=== PATIENT | male | born 1980 | race Caucasian/White ===

== ENCOUNTER → 2021-04-02 11:27 | Outpatient (BNVA) | payer OTHER, SELFPAY | PROVIDERS: Visit Provider Nurse Practitioner Family | DX: I10 Essential (primary) hypertension (principal); H66.93 Otitis media, unspecified, bilateral; Z13.6 Encounter for screening for cardiovascular disorders; E55.9 Vitamin D deficiency, unspecified; Z79.899 Other long term (current) drug therapy | CPT/HCPCS: 80053; 80061; 81003; 82306; 83036; 84439; 84443; 85025 ==

== ENCOUNTER → 2021-04-12 11:26 | Outpatient (BNVA) | payer OTHER, SELFPAY | PROVIDERS: PCP Nurse Practitioner Family; Visit Provider Nurse Practitioner Family | DX: N02.9 Recurrent and persistent hematuria with unspecified morphologic changes (principal); R94.4 Abnormal results of kidney function studies; R80.9 Proteinuria, unspecified | CPT/HCPCS: 80053; 81003; 87086 ==

== ENCOUNTER 2021-04-26 16:26 | Observation (INO) | payer OTHER, SELFPAY ==
--- NOTE | 2021-04-26 16:33 | ECG_ITS ---
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
[2021-04-26 17:16] VITALS: BP 171/102; PULSE 84; RESP 14; TEMP 36.8; O2SAT 97; BMI 35.3
--- NOTE | 2021-04-26 17:26 | XRR_ITS ---
PROCEDURE INFORMATION: Exam: XR Chest Exam date and time: 04/26/2021 5:26 PM Age: 40 years old Clinical indication: Sternal or substernal pain; Additional info: Chest pain TECHNIQUE: Imaging protocol: XR of the chest. Views: 1 view. COMPARISON: No relevant prior studies available. FINDINGS: Lungs: Unremarkable. No consolidation. Pleural spaces: Unremarkable. No pleural effusion. No pneumothorax. Heart/Mediastinum: Unremarkable. No cardiomegaly. Bones/joints: Probable old healed left clavicle fracture. No acute fracture. XR/XR chest 1V portable [id number] IMPRESSION: 1. No acute findings. Radiation Dose CTDIVOL = (mGy): DLP = (mGy-cm)
[2021-04-26 17:28] VITALS: BP 171/102; PULSE 83; RESP 16; O2SAT 98
[2021-04-26 17:52] LABS: Basophils # 0.1 10^3/uL (0.0-0.1); Basophils % 0.6 %; Eosinophils # 0.1 10^3/uL (0.0-0.8); Eosinophils % 0.7 %; Hematocrit 44.8 % (42.0-52.0); Hemoglobin 15.8 g/dL (11.7-16.6); Lymphocytes # 2.6 10^3/uL (0.8-4.8); Lymphocytes % 25.1 %; Mean Corpuscular HGB Conc 35.3 g/dL (30.0-36.0); Mean Corpuscular Hemoglobin 29.2 pg (28.0-34.0); Mean Corpuscular Volume 82.7 fl (80-94); Mean Platelet Volume 9.6 fL (7.4-10.4); Monocytes # 0.6 10^3/uL (0.2-0.9); Neutrophils # 6.96 10^3/uL (1.8-7.7); Neutrophils % 67.2 %; Nucleated Red Blood Cells % 0 %; Platelet Count 301 10^3/cmm (130-400); Red Blood Count 5.42 10^6/uL (4.1-5.3); Red Cell Distribution Width 12.5 % (12.1-15.1); White Blood Count 10.4 10^3/uL (4.0-10.0)
--- NOTE | 2021-04-26 17:53 | ED_ITS ---
HPI - General Adult General: Chief complaint: Chest Pain Stated complaint: CP Time Seen by Provider: 04/26/21 17:16 History of Present Illness: HPI narrative: CC: Chest Pain HPI: This is a [40] yo patient hx of HTN presenting to the ED complaining of acute sudden onset intermittent chest pressure since 3 hrs now worsening progressively over 3 weeks. No associated with shortness of breath, chest pain or dyspnea on exertion. Pain is not tearing in nature and does not radiate to the back. Pain not associated with vomiting or PO intake. Denies any recent sympathomimetic drug use. Patient denies any cough. Denies palpitations, dysphagia, diaphoresis, radiation of pain to bilateral arms, jaw. Denies F/N/V/D. Patient denies any recent immobility, surgery, unilateral leg swelling, or prior PE. Patient denies any orthopnea. Onset: 3 weeks ago Duration: ongoing for the last 21 days Location: home Severity: mild/moderate Review of Systems Narrative: Constitutional: No fever, no chills. HEENT: No vision changes, no sore throat. CV: +chest pain, no palpitations. PULM: No cough, No dyspnea. GI: No abdominal pain, no N/V/D. : No dysuria, no frequency, no hematuria. MSKEL: No arthralgias, no edema. SKIN: No new rashes, no lesions. NEURO: No headache, no focal weakness. HEME: No easy bleeding or bruising. PSYCH: No change in mood or affect. PFS ED PFSH: Medical History (Updated 04/26/21 @ 20:23 by Yanet Avitia MD) Bilateral acute otitis media Decreased GFR Elevated serum creatinine Hypertension screen Medication management Proteinuria Recurrent hematuria Tachycardia Vitamin D deficiency Social History Smoking and tobacco status: never smoked Physical Exam Narrative: EXAM NARRATIVE: Head: Atraumatic, normocephalic Eyes: PERRL, EOMI, conjunctiva without injection ENT: Throat without erythema, lesions or exudate, MMM NECK: Supple, trachea midline, no JVD LUNGS: LCTA CV: RRR, S1,S2, no murmurs, rubs, gallops. 2+ peripheral pulses in UEs ABDOMEN: Soft, nontender, nondistended, BS x4, no rigidity, no guarding, no rebound EXTREMITY: Normal ROM, no pitting edema, no calf tenderness to palpation SKIN: No rash or erythema NEURO: Awake and alert. No focal motor deficits. PSYCH: Normal mood and affect. Course Vital Signs: Vital signs: Vital Signs Temperature 98.2 F 04/26/21 17:16 Pulse Rate 92 04/26/21 18:43 Respiratory Rate 16 04/26/21 17:28 Blood Pressure 127/79 04/26/21 18:43 Pulse Oximetry 96 04/26/21 18:43 MDM - General Adult MDM Narrative: Medical decision making narrative: [40]yo patient w/ hx of HTN presenting to the ED with evaluation of chest pain worsening over the last 3 weeks, worse with exertion. HDS, pulse 2+ radially bilaterally, no signs of fluid overload, AAOx3, neuro exam intact. Given History and Exam today I have no suspicion for ACS, Pneumothorax, Pneumonia, Pulmonary Embolus, Tamponade, Aortic Dissection or other emergent problems as a cause for this presentation. Workup: ECG, CXR, CBC, BMP, Troponin x 2 Interventions: Aspirin Findings: ECG: No overt evidence of STEMI, hyperacute T waves, localizable STD or T wave inversions. No evidence of Brugada?s sign, delta wave, epsilon wave, significantly prolonged QTc, or malignant arrhythmia. No Q waves. Other Labs unremarkable for emergent problems. CXR: Without PTX, PNA, or widened mediastinum Last Stress Test: never Last Heart Catheterization: never Given the fact that this is patient's third visit to the emergency room, has exertional chest pain, patient will be admitted to the hospital for further work-up including stress test and echo. Disposition: Admission Lab Data: Labs: Lab Results 04/26/21 04/26/21 04/26/21 17:40 17:40 17:40 WBC 10.4 10^3/uL H 10 ^3/uL (4.0-10.0) RBC 5.42 10^6/uL H 10 ^6/uL (4.1-5.3) Hgb 15.8 g/dL g/dL (11.7-16.6) Hct 44.8 % % (42.0-52.0) MCV 82.7 fl fl (80-94) MCH 29.2 pg pg (28.0-34.0) MCHC 35.3 g/dL g/dL (30.0-36.0) RDW 12.5 % % (12.1-15.1) Plt Count 301 10^3/cmm 10^3 /cmm (130-400) MPV 9.6 fL fL (7.4-10.4) Neut % (Auto) 67.2 % % Lymph % (Auto) 25.1 % % [place] % (Auto) 6.0 % % Eos % (Auto) 0.7 % % Baso % (Auto) 0.6 % % Neut # (Auto) 6.96 10^3/uL 10^3 /uL (1.8-7.7) Lymph # (Auto) 2.6 10^3/uL 10^3/ uL (0.8-4.8) [place] # (Auto) 0.6 10^3/uL 10^3/ uL (0.2-0.9) Eos # (Auto) 0.1 10^3/uL 10^3/ uL (0.0-0.8) Baso # (Auto) 0.1 10^3/uL 10^3/ uL (0.0-0.1) Nucleated RBC % (a uto) 0 % % Nucleated RBCs # 0.0 /100WBC /100W BC D-Dimer Sodium 142 mmol/L mmol/L (136-145) Potassium 4.2 mmol/L mmol/L (3.5-5.1) Chloride 106 mmol/L mmol/L (98-107) Carbon Dioxide 22 mmol/L mmol/L (22-29) Anion Gap 18.2 (5-19) BUN 16 mg/dL mg/dL (6-20) Creatinine 1.5 mg/dL H mg/dL (0.7-1.2) GFR Calculation 51.3 mL/min L mL/ min (90-130) Glucose 91 mg/dL mg/dL (65-115) Calculated Osmolal ity 295 mOsm/kg mOsm/ kg (285-295) Calcium 8.9 mg/dL mg/dL (8.5-10.5) Troponin T Baselin e 12 ng/L ng/L (0-15) Troponin T 120 Min [place] Delta Troponin T 04/26/21 04/26/21 17:40 19:53 WBC RBC Hgb Hct MCV MCH MCHC RDW Plt Count MPV Neut % (Auto) Lymph % (Auto) [place] % (Auto) Eos % (Auto) Baso % (Auto) Neut # (Auto) Lymph # (Auto) [place] # (Auto) Eos # (Auto) Baso # (Auto) Nucleated RBC % (a uto) Nucleated RBCs # D-Dimer 0.37 ug/mIFEU ug/ mIFEU (0-0.59) Sodium Potassium Chloride Carbon Dioxide Anion Gap BUN Creatinine GFR Calculation Glucose Calculated Osmolal ity Calcium Troponin T Baselin e Troponin T 120 Min [place] 10.23 ng/L ng/L (0-15) Delta Troponin T -1.77 ABS# L ABS# (0-10) Discharge Plan Discharge Patient Disposition: Admitted As Inpatient Clinical Impression: Chest pain, VALDEMAR (acute kidney injury) Condition: Stable Coding Level of Care Code ED [employer] for George Elam
[2021-04-26 18:06] LABS: D Dimer 0.37 ug/mIFEU (0-0.59)
[2021-04-26 18:10] LABS: Troponin(5th) Baseline 12 ng/L (0-15)
[2021-04-26 18:11] LABS: Anion Gap 18.2 (5-19); Blood Urea Nitrogen 16 mg/dL (6-20); Calcium 8.9 mg/dL (8.5-10.5); Carbon Dioxide 22 mmol/L (22-29); Chloride 106 mmol/L (98-107); Glomerular Filtration Rate 51.3 mL/min (90-130); Glucose 91 mg/dL (65-115); Osmolality Calculated 295 mOsm/kg (285-295); Potassium 4.2 mmol/L (3.5-5.1); Sodium 142 mmol/L (136-145)
[2021-04-26] MEDS: aspirin 325 mg Tablet PO (18:41)
[2021-04-26 18:43] VITALS: BP 127/79; PULSE 92; O2SAT 96
--- NOTE | 2021-04-26 19:26 | ECG_ITS ---
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1980 Requested By: Yanet Avitia Order Number: [id number] Reading MD: ANTONIO JOHNSTON Measurements Intervals [place] Rate: 82 P: 31 [place]: 139 QRS: 44 QRSD: 96 T: 35 QT: 351 QTc: 412 Interpretive Statements SINUS RHYTHM POSSIBLE RIGHT VENTRICULAR CONDUCTION DELAY [RSR (QR) IN V1/V2] Compared to ECG 04/26/2021 16:44:43 Incomplete right bundle-branch block no longer present Electronically Signed On 04-27-2021 0:02:00 CDT by ANTONIO JOHNSTON [email or web address]/store/NU/[id number] f
--- NOTE | 2021-04-26 20:05 | PM.HP ---
Providers/Chief Complaint Primary Care Provider: SIRIA Jean Chief Complaint: CP History of Present Illness Husam Lutz is a 40 year old male with past medical history of hypertension, possible chronic kidney disease, dyslipidemia who is presenting with complaints of chest tightness. According to the patient it was present for last 4 weeks. Triggered by walking or other physical activities. Today it started when he was working in [employer] with his children. It is mild to moderate in intensity intermittent. Resting helps with the pain. Reports associated shortness of breath and tingling all over the body. He noticed that occasionally his blood pressure is elevated when he experiences this episodes. Reports associated diaphoresis. Denies palpitations, cough, fever, peripheral swelling. Denies focal muscle weakness or sensory loss. Denies problems with speech. Denies headache. His primary care physician Abel considering cardiac referral for outpatient stress test. Review of Systems General: Reports: 10 or more systems reviewed and unremarkable except in HPI and below Medications/Allergies Home Medications Medication Instructions Recorded Confirmed Last Taken Type amlodipine 10 mg tablet 10 mg PO DAILY 90 Days #90 tab 04/18/21 04/22/21 Unknown Rx atorvastatin 40 mg tablet 40 mg PO DAILY 30 Days #30 tab 04/18/21 04/22/21 Unknown Rx clonidine HCl 0.1 mg tablet 0.1 mg PO BID PRN 30 Days #60 tab 04/18/21 04/22/21 Unknown Rx hydralazine 25 mg tablet 25 mg PO TID 30 Days #90 tab 04/18/21 04/22/21 Unknown Rx nitroglycerin 0.4 mg sublingual 0.4 mg SUBLINGUAL Q5M PRN 30 Days 04/18/21 04/22/21 Unknown Rx tablet #30 tab metoprolol tartrate 25 mg tablet 12.5 mg PO BID 30 Days #30 tab 04/22/21 04/22/21 Unknown Rx Allergies Allergy/AdvReac Type Severity Reaction Status Date / Time No Known Allergies Allergy Verified 04/22/21 15:08 PFSH Acute PFSH: Medical History (Updated 04/26/21 @ 20:08 by Jeferson Thompson) Bilateral acute otitis media Decreased GFR Elevated serum creatinine Hypertension screen Medication management Proteinuria Recurrent hematuria Tachycardia Vitamin D deficiency Social History Smoking and tobacco status: never smoked Vitals/I&O/Wt Last Vital Signs Temp 98.2 F 04/26/21 17:16 Pulse 92 04/26/21 18:43 Resp 16 04/26/21 17:28 BP 127/79 04/26/21 18:43 Pulse Ox 96 04/26/21 18:43 Weight last 48 hrs Weight 99.337 kg Physical Exam Narrative: EXAM NARRATIVE: The patient is currently awake alert oriented. No acute distress. Mood and affect are appropriate. Responses are adequate. Normal speech. Skin is warm and dry. Extremities Neck supple. Lungs are clear to auscultation bilaterally. No respiratory distress no tenderness on palpation of the chest wall Heart S1, S2, regular Abdomen soft, obese, nontender, bowel sounds are present Extremities no edema cyanosis or calf tenderness bilaterally Neuro examination is nonfocal. Data : 04/26/21 17:40 04/26/21 17:40 Other Labs: Laboratory Results WBC 10.4 10^3/uL (4.0-10.0) H 04/26/21 17:40 RBC 5.42 10^6/uL (4.1-5.3) H 04/26/21 17:40 Hgb 15.8 g/dL (11.7-16.6) 04/26/21 17:40 Hct 44.8 % (42.0-52.0) 04/26/21 17:40 MCV 82.7 fl (80-94) 04/26/21 17:40 MCH 29.2 pg (28.0-34.0) 04/26/21 17:40 MCHC 35.3 g/dL (30.0-36.0) 04/26/21 17:40 RDW 12.5 % (12.1-15.1) 04/26/21 17:40 Plt Count 301 10^3/cmm (130-400) 04/26/21 17:40 MPV 9.6 fL (7.4-10.4) 04/26/21 17:40 Neut % (Auto) 67.2 % 04/26/21 17:40 Lymph % (Auto) 25.1 % 04/26/21 17:40 [place] % (Auto) 6.0 % 04/26/21 17:40 Eos % (Auto) 0.7 % 04/26/21 17:40 Baso % (Auto) 0.6 % 04/26/21 17:40 Neut # (Auto) 6.96 10^3/uL (1.8-7.7) 04/26/21 17:40 Lymph # (Auto) 2.6 10^3/uL (0.8-4.8) 04/26/21 17:40 [place] # (Auto) 0.6 10^3/uL (0.2-0.9) 04/26/21 17:40 Eos # (Auto) 0.1 10^3/uL (0.0-0.8) 04/26/21 17:40 Baso # (Auto) 0.1 10^3/uL (0.0-0.1) 04/26/21 17:40 Nucleated RBC % (auto) 0 % 04/26/21 17:40 Nucleated RBCs # 0.0 /100WBC 04/26/21 17:40 D-Dimer 0.37 ug/mIFEU (0-0.59) 04/26/21 17:40 Sodium 142 mmol/L (136-145) 04/26/21 17:40 Potassium 4.2 mmol/L (3.5-5.1) 04/26/21 17:40 Chloride 106 mmol/L (98-107) 04/26/21 17:40 Carbon Dioxide 22 mmol/L (22-29) 04/26/21 17:40 Anion Gap 18.2 (5-19) 04/26/21 17:40 BUN 16 mg/dL (6-20) 04/26/21 17:40 Creatinine 1.5 mg/dL (0.7-1.2) H 04/26/21 17:40 GFR Calculation 51.3 mL/min (90-130) L 04/26/21 17:40 Glucose 91 mg/dL (65-115) 04/26/21 17:40 Calculated Osmolality 295 mOsm/kg (285-295) 04/26/21 17:40 Calcium 8.9 mg/dL (8.5-10.5) 04/26/21 17:40 Troponin T Baseline 12 ng/L (0-15) 04/26/21 17:40 Impressions Chest X-Ray 04/26/21 17:26 IMPRESSION: 1. No acute findings. Radiation Dose CTDIVOL = (mGy): DLP = (mGy-cm) A&P Assessment and plan (1) Chest pain: Status: Acute (2) Hypertension: Status: Acute (3) CKD (chronic kidney disease): Status: Acute (4) Hyperlipidemia: Status: Acute Additional A&P Information 40-year-old male with past medical history of uncontrolled hypertension, possible chronic kidney disease suspected to be secondary to hypertensive nephropathy, dyslipidemia presenting with recurrent chest tightness with associated diaphoresis and shortness of breath. Possible acute coronary syndrome, stable angina. EKG showed no acute ischemic changes. First troponin was unremarkable. Will admit the patient for ACS rule out. Will request stress test in the morning. We will continue aspirin, Lipitor, beta-flores. As needed nitroglycerin. CKD. We will avoid nephrotoxic medications. We will monitor renal function Hypertension. Will resume home medications. We will add as needed labetalol. Dyslipidemia. We will check fasting lipids in the morning. We will continue Lipitor. DVT prophylaxis. SCDs. Will encourage ambulation. I do not expect decreased mobility. Mild leukocytosis. We will recheck his CBC in the morning. CODE STATUS. He wants to be full code. The plan of care was discussed with the patient and the family. 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
[2021-04-26 20:20] LABS: Troponin 5 2HR 10.23 ng/L (0-15)
[2021-04-26 20:25] LABS: Troponin 5 2HR Delta -1.77 ABS# (0-10)
[2021-04-26 22:11] VITALS: BP 136/80; PULSE 75; RESP 18; TEMP 36.8; O2SAT 94
[2021-04-26 22:14] VITALS: BMI 35.5
[2021-04-26] MEDS: hyDRALAzine 25 mg Tablet PO (22:42)
[2021-04-26 23:15] VITALS: PULSE 74; O2SAT 95
--- NOTE | 2021-04-26 23:26 | ECG_ITS ---
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 Measurements Intervals [place] Rate: 78 P: 19 ND: 143 QRS: 36 QRSD: 86 T: 6 QT: 369 QTc: 423 Interpretive Statements SINUS RHYTHM Compared to ECG 04/26/2021 20:27:58 No significant changes Electronically Signed On 04-28-2021 22:00:30 TOP CUTTER by Fredy Logan M.D. [id number]
[2021-04-27] VITALS: BP 134/78; PULSE 73; RESP 17; TEMP 36.8; O2SAT 93
[2021-04-27 00:13] LABS: Troponin 5 6HR 12.77 ng/L (0-15); Troponin 5 6HR Delta 0.77 ng/L (0-12)
[2021-04-27 04:00] VITALS: BP 130/81; PULSE 83; RESP 17; TEMP 36.7; O2SAT 93
[2021-04-27 05:33] LABS: Basophils % 0.5 %; Eosinophils # 0.1 10^3/uL (0.0-0.8); Eosinophils % 1.1 %; Hemoglobin 15.1 g/dL (11.7-16.6); Lymphocytes # 2.2 10^3/uL (0.8-4.8); Lymphocytes % 27.6 %; Mean Corpuscular HGB Conc 33.6 g/dL (30.0-36.0); Mean Corpuscular Hemoglobin 28.5 pg (28.0-34.0); Mean Corpuscular Volume 84.9 fl (80-94); Mean Platelet Volume 9.8 fL (7.4-10.4); Monocytes # 0.6 10^3/uL (0.2-0.9); Neutrophils # 5.15 10^3/uL (1.8-7.7); Neutrophils % 63.6 %; Nucleated Red Blood Cells % 0 %; Platelet Count 270 10^3/cmm (130-400); Red Cell Distribution Width 12.5 % (12.1-15.1); White Blood Count 8.1 10^3/uL (4.0-10.0)
[2021-04-27 05:56] LABS: Anion Gap 15.7 (5-19); Blood Urea Nitrogen 15 mg/dL (6-20); Calcium 8.7 mg/dL (8.5-10.5); Carbon Dioxide 24 mmol/L (22-29); Chloride 105 mmol/L (98-107); Chol HDL Ratio 4.21 mg/dL (1.0-5.00); Cholesterol 164 mg/dL (0-200); Glomerular Filtration Rate 66.4 mL/min (90-130); Glucose 84 mg/dL (65-115); HDL Cholesterol 39 mg/dL (60-100); LDL Cholesterol Calculated 103 mg/dL (50-129); LDL HDL Ratio 2.64 RATIO (0.00-3.22); Osmolality Calculated 292 mOsm/kg (285-295); Potassium 3.7 mmol/L (3.5-5.1); Sodium 141 mmol/L (136-145); Triglycerides 110 mg/dL (0-150)
[2021-04-27 07:48] VITALS: BP 144/76; PULSE 80; RESP 16; TEMP 36.8; O2SAT 99
[2021-04-27] MEDS: aspirin 81 mg EC Tablet PO (09:00)
[2021-04-27] MEDS: hyDRALAzine 25 mg Tablet PO (09:00)
[2021-04-27] MEDS: metoprolol tartrate 25 mg Tablet 12.5 MG PO (09:00)
[2021-04-27] MEDS: amlodipine 10 mg Tablet PO (09:00)
[2021-04-27] MEDS: atorvastatin 40 mg Tablet PO (09:00)
--- NOTE | 2021-04-27 09:40 | USCV_ITS ---
Husam Lutz Age: 40 Gender: M : 1980 Exam Date: 04/27/2021 10:34 Ordering Phys: Carlos Gupta MD Technologist: Kelsey Le Exam Location: [facility] [place] Indication: Chest pain BP: 144 / 76 HR: 76 Rhythm: Sinus Technical Quality: Fair MEASUREMENTS (Male / Female) Normal Values 2D ECHO LV Diastolic Diameter PLAX 4.0 cm 4.2 - 5.9 / 3.9 - 5.3 cm LV Systolic Diameter PLAX 2.4 cm LV Chamber Size 4.3 cm IVS Diastolic Thickness 0.9 cm 0.6 - 1.0 / 0.6 - 0.9 cm IVS Systolic Thickness 1.3 cm LVPW Diastolic Thickness 0.9 cm 0.6 - 1.0 / 0.6 - 0.9 cm LVPW Systolic Thickness 1.3 cm RV Chamber Size 2.9 cm LVOT Diameter 2.0 cm LV Ejection Fraction 2D Teich 70.6 % LV Ejection Fraction MOD 2C 67.5 % LV Ejection Fraction 2C AL 68.8 % LA Diameter 3.0 cm LA Width 2.0 cm LA Height 5.4 cm RA Width 2.2 cm RA Height 4.8 cm Aorta at Sinotubular Diameter 2.3 cm M-MODE LV Diastolic Diameter MM 4.1 cm 4.2 - 5.9 / 3.9 - 5.3 cm LV Systolic Diameter MM 2.5 cm LV Ejection Fraction MM Teich 71.7 % IVS Diastolic Thickness MM 1.3 cm 0.6 - 1.0 / 0.6 - 0.9 cm IVS Systolic Thickness MM 1.6 cm LVPW Diastolic Thickness MM 1.2 cm 0.6 - 1.0 / 0.6 - 0.9 cm LVPW Systolic Thickness MM 1.4 cm RV Diastolic Diameter MM 1.0 cm Aortic Annulus Diameter 3.3 cm LA Ao Ratio MM 1.0 MV E Point Septal Separation 0.6 cm DOPPLER AV Peak Velocity 152.0 cm/s LVOT Peak Velocity 143.0 cm/s AV Area Cont Eq vti 3.4 cm squared AV Area Cont Eq pk 2.9 cm squared MV Area PHT 3.2 cm squared Mitral E to A Ratio 0.8 MV E' Velocity 41.5 cm/s Mitral E to MV E' Ratio 7.6 Mitral E to LV E' Lateral Ratio 7.3 Mitral E to LV E' Septal Ratio 7.8 TR Peak Velocity 229.0 cm/s TR Peak Gradient 21.0 mmHg TV Peak E Velocity 56.0 cm/s Right Atrial Pressure 3.0 mmHg Pulmonary Artery Systolic Pressu 24.0 mmHg PV Peak Velocity 87.0 cm/s RV Acceleration Time 0.1 s RV Ejection Time 0.3 s RV AcT/ET 0.3 FINDINGS Left Ventricle Normal left ventricular size. LV systolic function is normal with EF of 55-60%. No regional wall motion abnormalities. Grade 1 diastolic dysfunction is seen Right Ventricle The right ventricle is normal in size and function. Right Atrium The right atrium is normal in size. Left Atrium The left atrium is normal in size. Mitral Valve Structurally normal mitral valve without significant stenosis or prolapse. There is no mitral regurgitation. Aortic Valve Structurally normal aortic valve without significant sclerosis or stenosis. There is no aortic regurgitation. Tricuspid Valve Structurally normal tricuspid valve without significant stenosis or regurgitation. Insufficient TR jet to calculate RVSP. Pulmonic Valve Structurally normal pulmonic valve without significant stenosis. There is no pulmonic regurgitation. Pericardium Normal pericardium without effusion. Aorta Normal ascending aorta dimension. CONCLUSIONS Technically limited quality echocardiogram because of poor ultrasonic windows. LV systolic function is normal with EF of 55 to 60%. Grade 1 diastolic dysfunction is noted. No significant valvular heart disease is present. No comparison studies are available. Fredy Logan MD (Electronically Signed) Final Date: 27 April 2021 19:52 S
[2021-04-27 11:22] VITALS: BP 135/79; PULSE 73; RESP 16; TEMP 36.5; O2SAT 90
--- NOTE | 2021-04-27 13:11 | PM.DCS ---
Discharge Providers Date of Admission: 04/26/21 19:57 Date of Discharge: April 27, 2021 Attending Provider at Admission: Jeferson Thompson Attending Provider at Discharge: Carlos Gupta MD Primary Care Provider: SIIRA Jean Diagnoses at Discharge Discharge Diagnosis (1) Chest pain: Status: Resolved (2) Hypertension: Status: Acute (3) CKD (chronic kidney disease): Status: Acute (4) Hyperlipidemia: Status: Acute Reason for Visit Reason for Visit: CP Hospital Course Hospital Course 40 year old male with past medical history of hypertension, possible chronic kidney disease, dyslipidemia who is presenting with complaints of chest tightness. According to the patient it was present for last 4 weeks. Triggered by walking or other physical activities. Today it started when he was working in [employer] with his children. It is mild to moderate in intensity intermittent. Resting helps with the pain. Reports associated shortness of breath and tingling all over the body. He noticed that occasionally his blood pressure is elevated when he experiences this episodes. Reports associated diaphoresis. Denies palpitations, cough, fever, peripheral swelling. Denies focal muscle weakness or sensory loss. Denies problems with speech. Denies headache. Patient was admitted for the management of chest pain rule out underlying coronary artery disease, Troponin trend was negative, EKG failed to show any ST-T wave changes, 2D echo: Showed normal LVEF, grade 1 diastolic dysfunction, no significant valvular abnormalities. Patient didn't have any similar episode of chest pain during the hospital stay. He wants to follow with his cardiology appointment as an outpatient which is due next week, and purse any further work-up from there. Patient was discharged on Imdur 20 mg p.o. daily, as well as sublingual nitro as needed, his home medications were continued. Given the typical presentation possibility of underlying coronary artery disease still exists, since the patient is hemodynamically, and had no similar episode of chest pain, he can be safely discharged home, to follow-up with food safety auditor as an outpatient and possible stress test as outpatient. Patient has responded well to the above medical management and is being discharged in stable condition to home.He will also follow-up with his primary care physician as an outpatient. Physical Exam Const: COMMON NORMALS: patient oriented x3 HENMT: COMMON NORMALS: normocephalic and atraumatic HEAD & SCALP: normocephalic and atraumatic Resp: COMMON NORMALS: clear to auscultation bilaterally EFFORT & INSPECTION: Yes symmetric chest movement AUSCULTATION: clear to auscultation bilaterally Cardio: COMMON NORMALS: regular rate, regular rhythm, S1 normal heart sound present, S2 normal heart sound present, No gallops present (Cardio), No murmurs present (Cardio), No rub (Cardio) and Peripheral pulses 2+ throughout RATE: regular rate RHYTHM: regular rhythm HEART SOUNDS: S1 normal heart sound present and S2 normal heart sound present PERIPHERAL PULSES: Peripheral pulses 2+ throughout GI: COMMON NORMALS: Normal to inspection, nondistended, normoactive bowel sounds present, Soft to palpation, non-tender, No hepatosplenomegaly present and no masses AUSCULTATION: Yes normoactive bowel sounds PALPATION: Yes Soft to palpation and Yes No hepatosplenomegaly present RECTAL EXAM: Yes deferred Extremity: COMMON NORMALS: no clubbing, cyanosis or edema and no pedal edema Neuro: COMMON NORMALS: patient oriented x3 Discharge Data Data Completed and Pending: Completed Studies During Hospitalization Category Date Time Status XR chest 1V reanna ble [id number] Urgent Exams 04/26/21 17:26 Completed Pending at discharge Category Date Time Status Cardiac Stress Te st Request Routine Exams 04/27/21 06:00 Ordered CV. echo complete * [id number] Routine Ultrasound 04/27/21 09:40 Taken Labs from last 24 hours 04/27/21 04/27/21 04/27/21 04:42 04:42 04:42 WBC 8.1 RBC 5.30 Hgb 15.1 Hct 45.0 MCV 84.9 MCH 28.5 MCHC 33.6 RDW 12.5 Plt Count 270 MPV 9.8 Neut % (Auto) 63.6 Lymph % (Auto) 27.6 [place] % (Auto) 7.0 Eos % (Auto) 1.1 Baso % (Auto) 0.5 Neut # (Auto) 5.15 Lymph # (Auto) 2.2 [place] # (Auto) 0.6 Eos # (Auto) 0.1 Baso # (Auto) 0.0 Nucleated RBC % (a uto) 0 Nucleated RBCs # 0.0 D-Dimer Sodium 141 Potassium 3.7 Chloride 105 Carbon Dioxide 24 Anion Gap 15.7 BUN 15 Creatinine 1.2 GFR Calculation 66.4 L Glucose 84 Calculated Osmolal ity 292 Calcium 8.7 Magnesium 2.0 Troponin T Baselin e Troponin T 120 Min [place] Delta Troponin T Troponin T Hi Sens 6Hr Troponin T Hi Sens 6Hr Delta Triglycerides 110 Cholesterol 164 LDL Cholesterol, C alc 103 HDL Cholesterol 39 L LDL/HDL Ratio 2.64 Cholesterol/HDL Ra malgorzata 4.21 04/26/21 04/26/21 04/26/21 23:30 19:53 17:40 WBC RBC Hgb Hct MCV MCH MCHC RDW Plt Count MPV Neut % (Auto) Lymph % (Auto) [place] % (Auto) Eos % (Auto) Baso % (Auto) Neut # (Auto) Lymph # (Auto) [place] # (Auto) Eos # (Auto) Baso # (Auto) Nucleated RBC % (a uto) Nucleated RBCs # D-Dimer 0.37 Sodium Potassium Chloride Carbon Dioxide Anion Gap BUN Creatinine GFR Calculation Glucose Calculated Osmolal ity Calcium Magnesium Troponin T Baselin e Troponin T 120 Min [place] 10.23 Delta Troponin T -1.77 L Troponin T Hi Sens 6Hr 12.77 Troponin T Hi Sens 6Hr Delta 0.77 Triglycerides Cholesterol LDL Cholesterol, C alc HDL Cholesterol LDL/HDL Ratio Cholesterol/HDL Ra malgorzata 04/26/21 04/26/21 04/26/21 17:40 17:40 17:40 WBC 10.4 H RBC 5.42 H Hgb 15.8 Hct 44.8 MCV 82.7 MCH 29.2 MCHC 35.3 RDW 12.5 Plt Count 301 MPV 9.6 Neut % (Auto) 67.2 Lymph % (Auto) 25.1 [place] % (Auto) 6.0 Eos % (Auto) 0.7 Baso % (Auto) 0.6 Neut # (Auto) 6.96 Lymph # (Auto) 2.6 [place] # (Auto) 0.6 Eos # (Auto) 0.1 Baso # (Auto) 0.1 Nucleated RBC % (a uto) 0 Nucleated RBCs # 0.0 D-Dimer Sodium 142 Potassium 4.2 Chloride 106 Carbon Dioxide 22 Anion Gap 18.2 BUN 16 Creatinine 1.5 H GFR Calculation 51.3 L Glucose 91 Calculated Osmolal ity 295 Calcium 8.9 Magnesium Troponin T Baselin e 12 Troponin T 120 Min [place] Delta Troponin T Troponin T Hi Sens 6Hr Troponin T Hi Sens 6Hr Delta Triglycerides Cholesterol LDL Cholesterol, C alc HDL Cholesterol LDL/HDL Ratio Cholesterol/HDL Ra malgorzata Vitals: Last Vital Signs Temp 97.7 F 04/27/21 11:22 Pulse 73 04/27/21 11:22 Resp 16 04/27/21 11:22 BP 135/79 04/27/21 11:22 Pulse Ox 90 04/27/21 11:22 Discharge Plan Discharge Patient Disposition: Home Condition: Stable Prescriptions: New nitroglycerin 0.4 mg tablet, sublingual 0.4 mg sublingual Q5M PRN (Reason: chest pain) Qty: 30 RF: 1 isosorbide mononitrate 20 mg tablet 20 mg PO DAILY 30 Days Qty: 30 RF: 0 Continued amlodipine [Norvasc] 10 mg tablet 10 mg PO DAILY 90 Days Qty: 90 RF: 0 hydralazine 25 mg tablet 25 mg PO TID 30 Days Qty: 90 RF: 0 clonidine HCl 0.1 mg tablet 0.1 mg PO BID PRN (Reason: hypertensive emergency) 30 Days Qty: 60 RF: 0 atorvastatin 40 mg tablet 40 mg PO DAILY 30 Days Qty: 30 RF: 0 nitroglycerin 0.4 mg tablet, sublingual 0.4 mg sublingual Q5M PRN (Reason: chest pain) 30 Days Qty: 30 RF: 0 metoprolol tartrate 25 mg tablet 12.5 mg PO BID 30 Days Qty: 30 RF: 0 aspirin 81 mg Tablet,Chewable 81 mg PO DAILY RF: 0 Discharge Orders: Discharge Order (Routine); Ordered 04/27/21 Ordered By: Carlos Gupta Referrals: NEHA Petit, BUSINESS SERVICES CLERK [Primary Care Provider] - 1 month (please make follow-up appointment with PCP in 1 month. ) Discharge Diet: Low Salt Discharge Activity: Resume usual activity Patient Instructions: Nitroglycerin (By mouth), Chest Pain (DC), Opioid Safety Discharge Attestations Time Spent in Discharge Care*: less than 30 min Specific Discharge Activities: educating patient, educating and/or supporting family/caregiver, discussing with pcp/other providers, discussing with caseworker protective services/social workers/dc planners, documenting/other paperwork and evaluating patient/reviewing data Status at Discharge: Cognitive status at discharge: cognitively intact, Behavioral status at discharge: cooperative, Functional status at discharge: independent ambulation Overall status at discharge: patient is back to baseline Quality Metrics Clinical Quality Measures During this hospital stay, did patient experience: None Coding Level of Care Code Acute Chg FW DC note Exam Detailed Diagnoses Chest pain R07.9 Hypertension I10 CKD (chronic kidney disease) N18.9 Hyperlipidemia E78.5
--- NOTE | 2021-04-27 14:36 | PC.NURSE ---
Called patient's isosorbide mononitrate into [facility] [place] [facility] per patient request d/t [facility] being closed. Attempted to call [facility] to cancel previously transmitted prescriptions and no option to leave a message.
== END 2021-04-27 14:20 | disposition home or self-care (01) ==
LOC: ER 20:29 → MEDSURG 20:51
PROVIDERS: Admitting Provider Internal Medicine; Emergency Provider Emergency Medicine; PCP Nurse Practitioner Family; Visit Provider Internal Medicine
DX: R07.9 Chest pain, unspecified (principal); I12.9 Hypertensive chronic kidney disease with stage 1 through stage 4 chronic kidney disease, or unspecified chronic kidney disease; N18.9 Chronic kidney disease, unspecified; E78.5 Hyperlipidemia, unspecified; D72.829 Elevated white blood cell count, unspecified; Z79.82 Long term (current) use of aspirin
CPT/HCPCS: 36415; 71045; 80048; 80061; 83735; 84484; 85025; 85378; 93005; 93306; 99285; G0378

== ENCOUNTER 2021-06-04 09:35 | Outpatient (CLI) | payer OTHER, SELFPAY ==
[2021-06-04 10:05] VITALS: BMI 35.3
--- NOTE | 2021-06-04 10:09 | ECG_ITS ---
[facility] Test Date: 2021-06-04 Pat Name: Husam Lutz Department: Room: Gender: Male [employer] Operator: Yoli Sow : 1980 Requested By: Fredy Logan Order Number: [id number] Jaquan MD: Fredy Logan M.D. Interpretive Statements NAME OF STUDY: EXERCISE SESTAMIBI STRESS TEST INDICATION: [sob, ] EXERCISE DATA: The patient was exercised by Jayson protocol. Baseline heart rate was 121 beats per minute. Baseline blood pressure was 145/88 millimeters of mercury. Target heart rate was 151 beats per minute. Maximum heart rate achieved was 170 which was 112% of the target heart rate. Maximum blood pressure was 180/72 millimeters of mercury. Total exercise time was 9 minutes 20 seconds. Maximum METs achieved was 10.2, maximum VO2 was 35.7. The reason for ending the test was completion of protocol. The patient complained of Hartness of breath during the stress test, which then resolved at the end of the test. ELECTROCARDIOGRAM: BASELINE: Showed sinus rhythm, normal axis, no significant ST-T changes at the baseline noted. [] EXERCISE: At the peak exercise level, [] No significant ST-T changes suggestive of ischemia noted. [] RECOVERY: During the recovery period, heart rate dropped appropriately. No significant ST-T changes in the recovery suggestive of ischemia noted. [] CONCLUSION: 1. Exercise capacity good. 2. Heart rate response was appropriate 3. Blood pressure response was appropriate 4. Symptoms not suggestive of ischemia. 5. Electrocardiogram portion of the stress test was not suggestive of ischemia. 6. Nuclear scan will be documented separately. Electronically Signed On 06-15-2021 13:08:18 WIND FIELD MANAGER by Fredy Logan M.D. [id number]
--- NOTE | 2021-06-04 10:10 | NMCV_ITS ---
NM pradeep perf SPECT r/s* [id number] Husam Lutz Age: 40 Gender: M : 1980 Exam Date: 06/04/2021 10:10 Ordering Phys: Fredy Logan M.D ([email or web address]) Technologist: JOYCELYN Mora Exam Location: [facility] Indications: TACHYCARDIA STRESS TEST Please see separate stress test report in [facility] for full findings IMAGE PROTOCOL Rest/Stress 1 Exercise Day Radiopharmaceutical Dose (mCi) Administration Site Administered by Rest: Tc-99m 11.0 IV JOYCELYN Burciaga Sestamicesilia Stress:Tc-99m 32.5 IV JOYCELYN Mora Sestamicesilia Rest: 60 Discovery 630 Stress: 15 Discovery 630 Radiopharmaceutical was injected at 92 % maximum heart rate. Images obtained in supine and prone position. SPECT RESULTS Technical Quality: Excellent Raw Data Analysis: Normal Image Corrections: No attenuation or motion correction applied Summed Stress Score: 0 Summed Rest Score: 0 Summed Difference Score: 0 PERFUSION FINDINGS SPECT images demonstrate homogeneous tracer distribution throughout the myocardium. FUNCTIONAL RESULTS (calculated via Gated SPECT) Stress Image LV EF (%): 83 Stress EDV (mL):75 TID: 0.83 Stress ESV (mL):13 FUNCTIONAL FINDINGS: There is normal left ventricular systolic function. IMPRESSIONS 1. Normal myocardial perfusion imaging with no evidence of ischemia. 2. LV systolic function is normal Fredy Logan MD (Electronically Signed) Final Date: 10 June 2021 12:24 S
[2021-06-04 12:51] VITALS: BP 130/91; PULSE 95
== END 2021-06-04 09:36 | disposition home or self-care (01) ==
PROVIDERS: PCP Nurse Practitioner Family; Visit Provider Internal Medicine
DX: R07.9 Chest pain, unspecified (principal); R06.02 Shortness of breath
CPT/HCPCS: 78452; 93017; A9500